=== PATIENT | male | born 1980 | race Caucasian/White ===

== ENCOUNTER 2019-05-23 20:51 | Emergency (ER) | payer OTHER, SELFPAY ==
--- NOTE | ~2019-05-23 | XR_ITS ---
EXAMINATION: XR chest 2V DATE: 05/23/2019 21:27 INDICATION: Chest pain TECHNIQUE: AP and lateral views of the chest are obtained. COMPARISON: 09/05/2018 FINDINGS: The lungs are free of acute opacities. There is no pleural effusion or pneumothorax. The ca rdiomediastinal silhouette is normal. There is mild thoracic spondylosis. IMPRESSION: 1. No acute cardiopulmonary abnormality. Reviewed, dictated and finalized at location A. [employer]
[2019-05-23 20:49] VITALS: BP 158/90; PULSE 110; RESP 18; TEMP 36.6; O2SAT 95; O2SAT 97
--- NOTE | 2019-05-23 21:06 | ED.CHESTPAIN ---
HPI - Chest Pain General Chief Complaint: Chest Pain Stated Complaint: meth use/ CP Time Seen by Provider: 05/23/19 21:05 Source: patient and RN notes reviewed Mode of arrival: EMS Limitations: no limitations History of Present Illness HPI narrative: Pt is a 39 y/o male presenting to the ED c/o CP. Pt reports he started experiencing midsternal CP while walking earlier today. Pt describes the pain as sharp and rates it at 3/10 on the pain scale. Pt states nothing has seemed to make it worse or better. Pt states he used Methamphetamine about 4 hrs ago, and states you never know what's in that shit when asked if he used other drugs. Pt states he is going to a crisis center tomorrow to be testing for AIDS. Pertinent past history: other (Methamphetamine use) Onset (ago): unknown (Earlier today) Pain location: substernal Pain scale (0-10): 3 Quality: sharp Associated symptoms: dyspnea Related Data Allergies Allergy/AdvReac Type Severity Reaction Status Date / Time No Known Allergies Allergy Verified 05/23/19 20:58 Review of Systems Review of Systems: Narrative: All systems reviewed & are unremarkable except as noted in HPI and below Cardiovascular: Cardiovascular: Reports chest pain (Midsternal) Respiratory: Respiratory: Reports dyspnea PMFSH Past Medical History Medical History Hepatitis C Surgical History Surgical History H/O plastic surgery debridement of rt 5th finger Social History Social History Smoking status: Current every day smoker Alcohol intake: current Substance use: current Substance use type: amphetamines Exam Const: General: cooperative, no acute distress and alert Nutritional Appearance: well nourished Orientation/consciousness: patient oriented x3 Limitations: no limitations HENMT: Mouth: Yes lip normal Resp: Effort & Inspection: normal respiratory effort Auscultation: clear to auscultation bilaterally Cardio: Rate: tachycardic Rhythm: regular rhythm Peripheral pulses: dorsalis pedis present (2+) Skin: General skin exam: normal color Neuro: General: patient oriented x3 Cognition (Neuro): normal cognition Speech: normal speech Extrem: General: normal to inspection, full ROM and no clubbing, cyanosis or edema Psych: Mental Status: mental status grossly normal Course Reevaluation(s) Reevaluation #1: Patient refusing blood draw, stating he has have blood work done at a crisis center tomorrow and does not want blood work done tonight. Patient ripped off EKG leads and started to pull his IV out. Patient leaving AGAINST MEDICAL ADVICE without any further evaluation. Patient advised importance of checking out his heart on account of his chest pain and shortness of breath and drug use. Patient refusing any further intervention or evaluation and left the department. Date: 05/23/19 Time: 21:40 Vital Signs Vital signs: Vital Signs Temperature 97.9 F 05/23/19 20:49 Pulse Rate 110 H 05/23/19 20:49 Respiratory Rate 18 05/23/19 20:49 Blood Pressure 158/90 H 05/23/19 20:49 Pulse Oximetry 95 05/23/19 20:49 Temperature 97.9 F 05/23/19 20:49 Pulse Rate 110 H 05/23/19 20:49 Respiratory Rate 18 05/23/19 20:49 Blood Pressure 158/90 H 05/23/19 20:49 Pulse Oximetry 97 05/23/19 20:49 MDM - Chest Pain Medical Records Data Attestation: I reviewed the patient's medical records. Imaging Data Radiologist's impression: ITS Impressions Chest X-Ray 05/23/19 21:33 IMPRESSION: 1. No acute cardiopulmonary abnormality. Critical Care Time Critical Care Time Critical Care Time: No Discharge Plan Discharge Clinical Impression: Chest pain, Methamphetamine abuse Patient Disposition: Left Against Medical Advice Condition: Stable Follow-up/Referrals: UNKNOWN,DOCTOR [Primary Care Provider] - Disc
--- NOTE | 2019-05-23 21:20 | PC.NURSE ---
Patient taken to radiology at this time.
--- NOTE | 2019-05-23 21:40 | PC.NURSE ---
This nurse was performing EKG and informing patient for need of blood draw. EDP walks in room. Patient starts to rip off his EKG leads and starts to rip out his IV. Patient stating I have to get blood drawn tomorrow at crisis and I don't need my blood to be drawn today. I'm refusing for my blood to be drawn or have anything else done. I don't want this EKG even. Patient starts to get up and take off his gown and leads. Patient states I'm leaving. Patient gathers his things and walks out of the department. Patient ambulated out of the ED with a steady gait with his belongings in hand.
--- NOTE | 2019-05-23 21:45 | PC.NURSE ---
Patient left before AMA papers was available. Patient was explained the benefits of staying to have the testing done as well as the risks of leaving AMA. Patient still stated he will leave AMA. Patient left the department as soon as he gathered his belongings and left before any papers or AMA form was available.
== END 2019-05-23 21:41 | disposition left against medical advice (07) ==
PROVIDERS: Emergency Provider Emergency Medicine
DX: R07.2 Precordial pain (principal); F15.10 Other stimulant abuse, uncomplicated; F17.290 Nicotine dependence, other tobacco product, uncomplicated
CPT/HCPCS: 71046; 99283

== ENCOUNTER 2020-03-09 16:04 | Emergency (ER) | payer OTHER, SELFPAY ==
--- NOTE | 2020-03-09 16:13 | ECG_ITS ---
Measurements Intervals [place] Rate: 98 P: 51 GA: 143 QRS: -37 QRSD: 118 T: 45 QT: 358 QTc: 457 Interpretive Statements SINUS RHYTHM POSSIBLE LEFT ATRIAL ENLARGEMENT LEFT AXIS DEVIATION RSR' IN V1 OR V2, CONSIDER RIGHT VENTRICULAR HYPERTROPHY OR RIGHT VCD POSSIBLE LEFT VENTRICULAR HYPERTROPHY BASELINE ARTIFACT- V2 BORDERLINE ECG Electronically Signed On 03-09-2020 16:22:04 [employer] by Kashmir Abernathy D.O.
--- NOTE | 2020-03-09 16:14 | ED.NEUROSD ---
HPI - Neuro Symptoms/Deficit General Chief Complaint: Neuro Symptoms/Deficit Stated Complaint: I had a stroke 3 days ago Time Seen by Provider: 03/09/20 16:14 Source: patient Mode of arrival: ambulatory Limitations: no limitations History of Present Illness HPI Narrative: Pt is a 39 yo male with a history of hepatitis C and substance abuse who presents for evaluation of possible stroke. Pt states that two days ago he had numbness in his right arm and right leg. He also experienced dizziness with this. Pt slept during the day 2 days ago, and then felt improved with numbness resolved. Pt states he came to the ER today for a check up. He denies current weakness or numbness. He is ambulatory. He denies vision changes. No nausea or vomiting. He denies any chest pain or shortness of breath. Related Data Home Medications Medication Instructions Recorded Confirmed No Home Medications 03/09/20 03/09/20 Allergies Allergy/AdvReac Type Severity Reaction Status Date / Time No Known Allergies Allergy Verified 03/09/20 16:24 Review of Systems Review of Systems: Narrative: CONSTITUTIONAL: Denies fever, chills, or sweats. EYES: Denies visual changes, redness, or discharge. ENT: Denies rhinorrhea, congestion, sore throat, or otalgia. CARDIOVASCULAR: Denies chest pain, palpitations, or edema. RESPIRATORY: Denies cough or dyspnea. GASTROINTESTINAL: Denies abdominal pain, nausea, vomiting, or diarrhea. GENITOURINARY: Denies dysuria or hematuria. SKIN: Denies rash or itching. MUSCULOSKELETAL: Denies back pain, joint pain, or myalgia. NEUROLOGIC: Denies current headache, numbness, or weakness. [facility] Past Medical History Medical History (Updated 03/09/20 @ 17:13 by Dorie Fowler MD) Hepatitis C Surgical History Surgical History H/O plastic surgery debridement of rt 5th finger Social History Social History Smoking status: Current every day smoker Alcohol intake: current Substance use: current Substance use type: amphetamines Gender identity (if verbalized by the patient): Male Exam Narrative: Exam Narrative: GENERAL: Awake, alert, conversant, anxious appearing HEAD: Normocephalic, atraumatic. EYES: PERRLA and EOMI. ENT: Nares clear, no rhinorrhea or epistaxis. Mucous membranes moist. NECK: Supple. CHEST: No respiratory distress, breathing even and non labored HEART: Regular rate, sinus rhythm ABDOMEN:Non distended, non tender EXTREMITIES: Normal range of motion. No edema. SKIN: Warm, dry, no rash. NEURO:No focal deficits. Alert and oriented x3. Finger to nose intact bilaterally. EOMs intact without nystagmus. No facial droop/asymmetry noted bilaterally. Grimace intact. Intact sensation in face. Hearing intact bilaterally. Shoulder shrug intact. Strength 5/5 bilateral upper extremities. Strength 5/5 bilateral lower extremities. Reflexes 2+ patellar. Heel to erazo intact bilaterally. Patient initially refused to ambulate, then was ambulatory with a narrow base, steady gait for the charge nurse. Course Vital Signs Vital signs: Vital Signs Temperature 36.5 C 03/09/20 16:18 Pulse Rate 93 03/09/20 16:18 Respiratory Rate 23 H 03/09/20 16:18 Blood Pressure 124/89 03/09/20 16:18 Pulse Oximetry 97 03/09/20 16:18 Temperature 36.5 C 03/09/20 16:18 Pulse Rate 87 03/09/20 16:24 Respiratory Rate 17 03/09/20 16:24 Blood Pressure 124/89 03/09/20 16:24 Pulse Oximetry 98 03/09/20 16:24 MDM - Neuro Symptoms/Deficit MDM Narrative Medical decision making narrative: Patient presented for evaluation of right-sided numbness that happened over 48 hours ago. Now resolved.Patient ambulated into the emergency department without ataxia. No neurological deficits on exam. Patient denying any pain. Laboratory results are normal without electrolyte derangement. No anemia. Patient wa
[2020-03-09 16:18] VITALS: BP 124/89; PULSE 93; RESP 23; TEMP 36.5; O2SAT 97
[2020-03-09 16:24] VITALS: BP 124/89; PULSE 87; RESP 17; O2SAT 98
[2020-03-09 16:35] LABS: Basophils Percent Auto 0.2 % (0.2-1.2); Eosinophils Absolute Auto 0.2 K/mm3 (0-0.3); Eosinophils Percent Auto 2.3 % (0-4.4); Hematocrit 42.6 % (42.0-52.0); Immature Granulocyte Absolute 0.02 K/mm3 (0.00-0.031); Immature Granulocyte Percent A 0.2 % (0-0.5); Lymphocytes Percent Auto 33.5 % (18.3-44.2); Mean Corpuscular HGB Conc 35.2 g/dl (32-36); Mean Corpuscular Hemoglobin 33.3 pg (26-34); Mean Corpuscular Volume 94.7 fl (80-100); Mean Platelet Volume 9.2 fl (7.4-10.4); Monocytes Absolute Auto 0.7 K/mm3 (0.1-0.6); Monocytes Percent Auto 8.3 % (2.6-8.5); Neutrophils Percent Auto 55.5 % (45.5-73.1); Platelet Count Result 294 k/mm3 (150-375); Red Cell Distribution Width 12.8 % (11.5-14.5)
[2020-03-09 16:49] LABS: INR 0.9
[2020-03-09 16:50] LABS: Anion Gap 8 mmol/L (8-16); Blood Urea Nitrogen 11 mg/dL (9-20); Calcium 9.2 mg/dL (8.4-10.2); Carbon Dioxide 28 mmol/L (22-30); Chloride 104 mmol/L (98-107); Estimated CRCL calculation 129 ml/min; Estimated Glomerular Filt Rate > 60; Glucose 111 mg/dL (75-110); Partial Thromboplastin Time 29.7 SECONDS (22.3-36.8); Potassium 3.7 mmol/L (3.4-5.0); Sodium 140 mmol/L (137-145)
[2020-03-09 17:02] LABS: Troponin I < 0.012 ng/mL (0.000-0.034)
== END 2020-03-09 17:14 | disposition left against medical advice (07) ==
PROVIDERS: Emergency Medicine; Emergency Provider Emergency Medicine
DX: R20.2 Paresthesia of skin (principal); Z86.19 Personal history of other infectious and parasitic diseases; F17.200 Nicotine dependence, unspecified, uncomplicated; R94.31 Abnormal electrocardiogram [ECG] [EKG]
CPT/HCPCS: 36415; 80048; 84484; 85025; 85610; 85730; 93005; 99284

== ENCOUNTER 2020-08-07 05:35 | Emergency (ER) | payer OTHER, SELFPAY ==
[2020-08-07 05:34] VITALS: BP 150/104; PULSE 119; RESP 21; RESP 23; TEMP 37.3; O2SAT 100
--- NOTE | 2020-08-07 05:52 | PC.NURSE ---
Pt asks for drink, water brought to pt room. Pt refuses water and states that he doesn't trust it.
--- NOTE | 2020-08-07 06:04 | ED.GENADULT ---
HPI - General Adult General Chief complaint: Overdose Stated complaint: overdose on bath salts/meth@ 2200 last night,detox Time Seen by Provider: 08/07/20 05:40 Source: EMS Mode of arrival: EMS Limitations: intoxication History of Present Illness HPI narrative: This is a 39 year old male who presents for evaluation of bath salts intoxication/overdose. EMS states that police were called to his residence because he was destroying his room with a sword. EMS also reports patient wanted to come to ER for detox. Patient is extremely anxious and he is paranoid. He only states he needs his body fixed and he admits to bathsalt use . He does not admit to alcohol use. He also admits to be anxious. He denies chest pain, sob, nausea, vomiting or abdominal pain. Related Data Home Medications Medication Instructions Recorded Confirmed No Home Medications 03/09/20 03/09/20 Allergies Allergy/AdvReac Type Severity Reaction Status Date / Time No Known Allergies Allergy Verified 03/09/20 16:24 Review of Systems Review of Systems: All systems reviewed & are unremarkable except as noted in HPI and below PMFSH Past Medical History Medical History (Updated 08/07/20 @ 06:58 by Mona Dye MD) Hepatitis C Surgical History Surgical History H/O plastic surgery debridement of rt 5th finger Social History Social History Smoking status: Current every day smoker Alcohol intake: current Substance use: current Substance use type: amphetamines Gender identity (if verbalized by the patient): Male Exam Const: General: alert Orientation/consciousness: patient oriented x3 Other: patient is extremely restless, anxious, constant get up and moving hands Eyes: EOM: EOMs intact bilaterally Resp: Effort & Inspection: normal respiratory effort and no retractions Auscultation: clear to auscultation bilaterally Cardio: Rate: tachycardic Rhythm: regular rhythm Heart sounds: no murmurs GI: GI Palp: Yes Soft to palpation, No Tenderness to palpation present (GI) and No Guarding due to palpation present (GI) Auscultation: normal bowel sounds Neuro: General: patient oriented x3 and moves all extremities Psych: Appearance: disheveled Affect: Anxious affect present Thought content: Yes Paranoid delusions present Other: He refused to drink water given to him by the nurse because he thought they were trying to poison him Course Reevaluation(s) Reevaluation #1: Patient is oriented x 3. He denies suicidal or homicidal ideations. He does not want to stay for labs, IVF, ativan. he is signing aMA Date: 08/07/20 Time: 06:10 Vital Signs Vital signs: Vital Signs Temperature 99.1 F 08/07/20 05:34 Pulse Rate 119 H 08/07/20 05:34 Respiratory Rate 21 H 08/07/20 05:34 Blood Pressure 150/104 H 08/07/20 05:34 Pulse Oximetry 100 08/07/20 05:34 Temperature 99.1 F 08/07/20 05:34 Pulse Rate 119 H 08/07/20 05:34 Respiratory Rate 23 H 08/07/20 05:34 Blood Pressure 150/104 H 08/07/20 05:34 Pulse Oximetry 100 08/07/20 05:34 Medical Decision Making Vital Signs Vital Signs: Vital Signs Temperature 99.1 F 08/07/20 05:34 Pulse Rate 119 H 08/07/20 05:34 Respiratory Rate 21 H 08/07/20 05:34 Blood Pressure 150/104 H 08/07/20 05:34 Pulse Oximetry 100 08/07/20 05:34 Temperature 99.1 F 08/07/20 05:34 Pulse Rate 119 H 08/07/20 05:34 Respiratory Rate 23 H 08/07/20 05:34 Blood Pressure 150/104 H 08/07/20 05:34 Pulse Oximetry 100 08/07/20 05:34 Lab Data Result diagrams: 08/07/20 05:53 08/07/20 05:53 Labs: Lab Results 08/07/20 08/07/20 08/07/20 Range/Units 05:53 05:53 05:53 WBC 9.8 (4.5-10.0) K/mm3 RBC 4.29 L (4.6-6.20) M/mm3 Hgb 14.3 (14.0-18.0) g/dL Hct 40.3 L (42.0-52.0) % MCV 93.9 (80-100) fl
--- NOTE | 2020-08-07 06:05 | PC.NURSE ---
Pt states that the light in the room is radiation that's gonna hurt. Pt refuses to sit in bed. EDP does not want 1:1 septic tank servicer.
--- NOTE | 2020-08-07 06:08 | PC.NURSE ---
Urinal at bedside, pt instructed to provide sample.
--- NOTE | 2020-08-07 06:15 | PC.NURSE ---
Pt refusing all medications at this time, requests AMA paperwork.
[2020-08-07 06:23] LABS: Basophils Percent Auto 0.3 % (0.2-1.2); Eosinophils Absolute Auto 0.4 K/mm3 (0-0.3); Eosinophils Percent Auto 3.6 % (0-4.4); Hematocrit 40.3 % (42.0-52.0); Hemoglobin 14.3 g/dL (14.0-18.0); Immature Granulocyte Absolute 0.02 K/mm3 (0.00-0.031); Immature Granulocyte Percent A 0.2 % (0-0.5); Lymphocytes Absolute Auto 2.84 K/mm3 (0.9-3.2); Lymphocytes Percent Auto 29.1 % (18.3-44.2); Mean Corpuscular HGB Conc 35.5 g/dl (32-36); Mean Corpuscular Hemoglobin 33.3 pg (26-34); Mean Corpuscular Volume 93.9 fl (80-100); Mean Platelet Volume 9.4 fl (7.4-10.4); Monocytes Absolute Auto 0.8 K/mm3 (0.1-0.6); Monocytes Percent Auto 8.2 % (2.6-8.5); Neutrophils Absolute Auto 5.7 K/mm3 (1.3-6.7); Neutrophils Percent Auto 58.6 % (45.5-73.1); Platelet Count Result 271 k/mm3 (150-375); Red Blood Count 4.29 M/mm3 (4.6-6.20); Red Cell Distribution Width 12.7 % (11.5-14.5); White Blood Count 9.8 K/mm3 (4.5-10.0)
[2020-08-07 06:29] LABS: Acetaminophen < 10 ug/mL (10-30); Alanine Aminotransferase 101 U/L (4-50); Albumin Level 4.5 g/dL (3.5-5.1); Alkaline Phosphatase 76 U/L (38-126); Anion Gap 8 mmol/L (8-16); Aspartate Amino Transferase 71 U/L (17-59); Bilirubin,Total 1.7 mg/dL (0.2-1.3); Blood Urea Nitrogen 17 mg/dL (9-20); Calcium 9.4 mg/dL (8.4-10.2); Carbon Dioxide 27 mmol/L (22-30); Chloride 104 mmol/L (98-107); Creatine Kinase 295 U/L (55-170); Estimated Glomerular Filt Rate > 60; Ethanol < 10 mg/dL (<10); Glucose 94 mg/dL (75-110); Magnesium 2.2 mg/dL (1.6-2.3); Potassium 3.8 mmol/L (3.4-5.0); Salicylate < 1.0 mg/dL (2-20); Sodium 139 mmol/L (137-145)
[2020-08-07 06:41] LABS: INR 0.9; Prothrombin Time 12.8 Seconds (11.1-14.7)
[2020-08-07 06:42] LABS: Partial Thromboplastin Time 24.1 SECONDS (22.3-36.8)
== END 2020-08-07 06:10 | disposition left against medical advice (07) ==
PROVIDERS: Emergency Provider General Practice
DX: F19.10 Other psychoactive substance abuse, uncomplicated (principal); Z86.19 Personal history of other infectious and parasitic diseases; F17.200 Nicotine dependence, unspecified, uncomplicated
CPT/HCPCS: 36415; 80053; 80307; 82550; 83735; 85025; 85610; 85730; 99283

== ENCOUNTER 2025-02-08 15:46 | Emergency (ER) | payer OTHER, SELFPAY ==
--- NOTE | 2025-02-08 15:47 | ED.SKABFB ---
HPI - Skin/Abscess/Foreign Bdy General Chief complaint: Skin/Abscess/Foreign Body Stated complaint: Right Hand Finger Pain Time Seen by Provider: 02/08/25 15:47 Source: patient Mode of arrival: ambulatory Limitations: no limitations History of Present Illness HPI narrative: Carter is a 44-year-old male patient presenting to the clinic today with complaints an infected right index finger for over 1 month. He reports he cut the top of his finger on Dec 28 when he was working on his house. Was seen at [facility] and was Rx antibiotics (doxycycline and mupirocin). States he truck got impounded and his antibiotics were in the vehicle. Has increase in pain and swelling the past two days. Wound is drainage yellow discharge. Has swelling extended into the right hand. Reports some chills and fatigue- no known fever. A friend gave him some cefdroxil to take. 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 Related Data Home Medications ?Medication ?Instructions ?Recorded ?Confirmed ?Last Taken ?Type No Home Medications 03/09/20 03/09/20 Unknown History Allergies Allergy/AdvReac Type Severity Reaction Status Date / Time No Known Allergies Allergy Verified 02/08/25 15:50 Review of Systems Review of Systems: Pertinent positives per HPI. Patient denies any fever, chills, rash, headache, visual changes, dizziness, cough, runny nose, sore throat, shortness of breath, chest pain, palpitations, nausea, vomiting, diarrhea, constipation, abdominal pain, or any urinary issues. PMFSH Past Medical History Medical History (Updated 02/08/25 @ 16:06 by Loc Roblero APRN) Hepatitis C Surgical History Surgical History H/O plastic surgery debridement of rt 5th finger Social History Social History Alcohol intake: current Substance use: current Substance use type: methamphetamine Gender identity (if verbalized by the patient): Male Comments At the time of my signature, I reviewed and agree with the nursing past medical, surgical, social, and family history. There is no relevant family history pertinent to the patient complaint. Exam Narrative: General: Well-developed, well nourished, in no apparent distress Head: Normocephalic, atraumatic. Cardio: Regular rate and rhythm, s1 and s2 normal, no murmur appreciated. Resp: Clear to auscultation bilaterally, no rhonchi, rales, wheezing or rubs. Integumentary: [place], warm, and dry except for right cellulitic index finger with redness, swelling, erythema, yellow discharge, unable to flex or extend the index finger, has swelling to the right hand likely due to gas formation Course Course Emergency Course: Portions of this record may have been created with voice recognition software. Level of Care: Express Care Visit Vital Signs Vital signs: Vital Signs Temperature 37.2 C 02/08/25 15:55 Pulse Rate 61 02/08/25 15:55 Respiratory Rate 18 02/08/25 15:55 Blood Pressure 127/75 02/08/25 15:55 Pulse Oximetry 97 02/08/25 15:55 Oxygen Delivery Room Air 02/08/25 15:55 Temperature 37.2 C 02/08/25 15:55 Pulse Rate 61 02/08/25 15:55 Respiratory Rate 18 02/08/25 15:55 Blood Pressure 127/75 02/08/25 15:55 Pulse Oximetry 97 02/08/25 15:55 Oxygen Delivery Room Air 02/08/25 15:55 Vital signs reviewed Transfer Transfered to: [facility] Transportation: Other (Private care) Transfer rationale: Higher level of care- cellulitis right index finger- r/o osteomyelitis Accepting physician: Dr. Sheikh Transfer comments: Declined EMS-told to remain NPO MDM - Skin/Abscess/Foreign Bdy MDM Narrative Medical decision making narrative: At the time of visit patient is sitting in the exam chair. Patient appears to be nontoxic. VS stable. Complaints an infected right index finger for over 1 month. He reports he cut the top of his finger on Dec 28 when he was working on his house. Was seen at [facility] and was Rx antibiotics (doxycycline and mupirocin). States he truck got impounded and his antibiotics were in the vehicle. Has increase in pain and swelling the past two days. Wound is drainage yellow discharge. Has swelling extended into the right hand. Reports some chills and fatigue- no known fever. A friend gave him some cefadroxil to take. 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 Plan: Patient has cellulitis-most likely osteomyelitis to the right index finger with hand swelling due to gas build up in subcutaneous tissue. Reporting chills and fatigue- wound is drainage yellow foul odor discharge. Recommend transfer to the ED for higher level of care/evaluation. Risk of loosing life/limb diagnosis explained to the patient. Patient agrees to transfer to the ED. Would like to go to [facility] ER for further evaluation. Report called to Alex DANIELLE for continuity of care. Dr. Sheikh accepts patient for transfer. Patient declined EMS- friend to drive him to the hospital- was told to remain NPO at this time. Differential Diagnosis Differential diagnosis: Likely abscess of skin or subcutaneous tissue, cellulitis and other (osteomyelitis ) Discharge Plan Discharge Clinical Impression: Cellulitis of finger of right hand, Swelling of right hand Patient Disposition: Acute Care Hospital Condition: Stable Instructions: Antibiotic Form Patient Language: Vietnamese Prescriptions: No Action No Home Medications Follow-up/Referrals: UNKNOWN,DOCTOR [Non-Staff] Time of Disposition: 16:05 Quality NIHSS Nursing Documentation ED NIHSS nursing documentation: reviewed/agree
[2025-02-08 15:55] VITALS: BP 127/75; PULSE 61; RESP 18; TEMP 37.2; O2SAT 97
== END 2025-02-08 16:05 | disposition short-term general hospital (02) ==
PROVIDERS: Emergency Provider Nurse Practitioner Family
DX: L03.011 Cellulitis of right finger (principal); R22.31 Localized swelling, mass and lump, right upper limb; F15.90 Other stimulant use, unspecified, uncomplicated; Z86.19 Personal history of other infectious and parasitic diseases
CPT/HCPCS: 99212; G0463